=== PATIENT | male | born 1975 | race American Indian/Alaskan Native ===

== ENCOUNTER 2018-03-02 21:50 | Emergency (ER) | payer OTHER ==
[2018-03-02 22:49] VITALS: BP 163/107
[2018-03-02] MEDS ORDERED: FLEXERIL PO ONE (22:54)
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
== END 2018-03-03 00:49 | disposition home or self-care (01) ==
LOC: ED 21:50
DX: M54.2 Cervicalgia (principal); F43.10 Post-traumatic stress disorder, unspecified; I10 Essential (primary) hypertension; V89.2XXA Person injured in unspecified motor-vehicle accident, traffic, initial encounter; Y93.89 Activity, other specified; Y92.89 Other specified places as the place of occurrence of the external cause; Y99.8 Other external cause status
CPT/HCPCS: 72125; 99284

== ENCOUNTER 2018-12-09 13:26 | Emergency (ER) | payer OTHER ==
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
== END 2018-12-09 13:35 | disposition left against medical advice (07) ==
LOC: ED 13:26